=== PATIENT | male | born 1990 | race African-American/Black ===

== ENCOUNTER 2024-09-21 19:19 | Emergency (ER) | payer MEDICAID, OTHER ==
[~2024-09-21] VITALS: Ht 177.8 cm; Wt 91.6 kg
[2024-09-21 20:35] VITALS: BP 139/97; PULSE 104; RESP 16; TEMP 98.2; O2SAT 98
[2024-09-21] MEDS ORDERED: CLIN1CAP70 PO (20:48)
[2024-09-21] MEDS ORDERED: IBUP-1456 PO (20:48)
--- NOTE | 2024-09-21 20:49 | ED.PDOC ---
Musculoskeletal HPI Comments 34 year old male presents to ER for wound check. Patient states he sustained a non-healing wound to webspace of left 4th and 5th toes 2 weeks ago s/p hitting his left foot against a "piece of metal" and presents to ER today for wound check. He reports 10/10 pain localized to webspace of left 4th and 5th toes. Denies use of medications for current symptoms. Patient presents to ER ambulatory on arrival, with steady gait, in no distress. Denies fever, skin drainage, numbness/tingling or any further symptoms/complaints Chief Complaint: Lower Extremity Time Seen by MD: 19:40 Primary Care Provider: UNKNOWN Reviewed Notes: Nurses Notes, Medications, Allergies Allergies: Coded Allergies: NO KNOWN ALLERGIES (Unverified , 09/21/24) Home Meds Active Scripts Ibuprofen (Ibuprofen) 800 Mg Tab, 1 TAB PO TID PRN, #30 TAB 0 Refills Prov:BRITTANY SOMMER 09/21/24 Clindamycin Hcl (Clindamycin Hcl) 300 Mg Cap, 1 CAP PO TID for 7 Days, #21 CAP 0 Refills Prov:BRITTANY SOMMER 09/21/24 Information Source: Patient Mode of Arrival: Ambulatory Last Tetanus: Unknown Past Medical History PAST MEDICAL HISTORY: Denies Surgical History: Denies all surgeries Family History Family History: Unknown Social History Smoker: Non-Smoker Alcohol: Occasionally Drugs: Marijuana Lives In: Home Constitutional: denies: chills, diaphoresis, fatigue, fever, malaise, sweats, weakness, others EENTM: denies: blurred vision, double vision, ear bleeding, ear discharge, ear drainage, ear pain, ear ringing, eye pain, eye redness, hearing loss, mouth pain, mouth swelling, nasal discharge, nose bleeding, nose congestion, nose pain, photophobia, tearing, throat pain, throat swelling, voice changes, others Respiratory: denies: cough, hemoptysis, orthopnea, SOB at rest, shortness of breath, SOB with excertion, stridor, wheezing, others Cardiovascular: denies: chest pain, dizzy spells, diaphoresis, Dyspnea on exertion, edema, irregular heart beat, left arm pain, lightheadedness, palpitations, PND, syncope, others Gastrointestinal: denies: abdomen distended, abdominal pain, blood streaked bowels, constipated, diarrhea, dysphagia, difficulty swallowing, hematemesis, melena, nausea, poor appetite, poor fluid intake, rectal bleeding, rectal pain, vomiting, others Genitourinary: denies: burning, dysuria, flank pain, frequency, hematuria, incontinence, penile discharge, penile sore, pain, testicle pain, testicle swelling, urgency, others Neurological: denies: dizziness, fainting, headache, left sided numbness, left sided weakness, numbness, paresthesia, pre-existing deficit, right sided numbness, right sided weakness, seizure, speech problems, tingling, tremors, weakness, others Musculoskeletal: denies: back pain, gout, joint pain, joint swelling, muscle pain, muscle stiffness, neck pain, others Integumetry: reports: others (As stated in HPI) Allergic/Immunocompromised: denies: Difficulty Healing, Frequent Infections, Hives, Itching, others Hematologic/Lymphatic: denies: anemia, blood clots, easy bleeding, easy bruising, swollen glands, others Endocrine: denies: excessive hunger, excessive sweating, excessive thirst, excessive urination, flushing, intolerance to cold, intolerance to heat, unexplained weight gain, unexplained weight loss, others Psychiatric: denies: anxiety, bipolar disorder, depression, hopeless, panic disorder, schizophrenia, sleepless, suicidal, others Physical Exam General Appearance: No Apparent Distress HEENT: PERRL/EOMI Neck: Full Range of Motion, Non-Tender, Normal Respiratory: Chest Non-Tender, Lungs Clear, No Accessory Muscle Use, No Respiratory Distress, Normal Breath Sounds Cardiovascular: No Murmur, No Gallop, Regular Rate/Rhythm Breast Exam: Deferred Gastrointestinal: NOT DONE Genitalia: Deferred Pelvic: Deferred Rectal: Deferred Extremities: Normal capillary refill, Normal range of motion Neurologic: Alert, tile trimmer II-XII nml as Tested, No Motor Deficits, Normal Affect, Normal Mood, No Sensory Deficits Cerebellar Function: Normal Reflexes: Normal Skin: Dry, Warm, Other (Mild swelling/erythema/TTP noted to webspace of left 4th and 5th toes. No skin drainage noted. Patient able to move all toes of left foot. Pulses intact) Peripheral Pulses: 2+ dorsalis pedis (R), 2+ dorsalis pedis (L) Lymphatic: No Adenopathy Was a procedure done? Was a procedure done?: No Sedation Sedation?: No Differential Diagnosis EXT Differential Diagnosis: Fracture, Dislocation, Contusion, Neurovascular injury X-Ray, Labs, Meds, VS Vital Signs Date Time Temp Pulse Resp B/P (MAP) Pulse Ox O2 Delivery O2 Flow Rate FiO2 09/21/24 20:35 98 Room Air* 0 21 09/21/24 20:35 98.2 104 16 139/97 (111) 98 98.2 09/21/24 19:30 98.2 104 16 139/97 (111) 98 98.2 Current Medications Medications (Trade) Dose Ordered Sig/Gabriel Route Start Time Stop Time Status Last Admin Ceftriaxone Sodium (Rocephin) 1,000 mg ONCE ONCE IM 09/21/24 20:45 09/21/24 20:46 DC 09/21/24 21:01 PATIENT: QUE SOLOMON ACCT: [id number] UNIT: [id number] : 1990 LOC: ER ROOM / BED: / AGE / SEX: 34 / M ADM STATUS: REG ER SERVICE 36 ORDERING PHYSICIAN: BRITTANY SOMMER PROCEDURE(s): LFOOT - L FOOT 3 VIEW XRAY REASON: left 4th and 5th toe pain ORDER NUMBER(s): [id number], ACCESSION NUMBER(s): [id number] EXAMINATIONS: 3 views of the left foot CLINICAL HISTORY: left 4th and 5th toe pain COMPARISON: None Findings and impression: Soft tissue swelling of the lateral forefoot distally. No grossly displaced fractures or dislocations are evident on the provided views. If there is persistent clinical concern for occult fracture, CT may be obtained to further evaluate. ATED BY: CHAD HAZEL MD DICTATED DATE/TIME: 09/21/242134 SIGNED BY: CHAD HAZEL MD SIGNED DATE/TIME: 09/21/242134 CC: Left foot x-ray reviewed Patient neurovascularly intact Rocephin 1 g IM ordered Tdap 0.5 mL IM ordered Wound care/cleaning discussed and advised Advised to follow up with PCP in 1-2 days Patient verbalized understanding and agreeable with current plan of care Advised to return to ER immediately if symptoms worsen Images Reviewed?: Images reviewed and evaluated by me Time of 1ST Reevaluation: 20:40 Reevaluation 1ST: N/A Patient Education/Counseling: Diagnosis, Treatment, Prognosis, Need For Follow Up Family Education/Counseling: No Family Present Departure 1 Departure Time of Disposition: 21:42 Impression: Primary Impression: Cellulitis of left foot Disposition: 01 HOME / SELF CARE / HOMELESS Condition: Stable e-Prescriptions Ibuprofen (Ibuprofen) 800 Mg Tab 1 TAB PO TID PRN, #30 TAB 0 Refills Prov: BRITTANY SOMMER 09/21/24 Clindamycin Hcl (Clindamycin Hcl) 300 Mg Cap 1 CAP PO TID for 7 Days, #21 CAP 0 Refills Prov: BRITTANY SOMMER 09/21/24 Discharged With: Self Critical Care Note Critical Care Time?: No Stability Stability form required: No Heart Score Heart Score: Heart Score Response (Comments) Value History N/A 0 EKG N/A 0 Age N/A 0 Risk Factors N/A 0 Troponin N/A 0 Total 0 BRITTANY SOMMER September 21, 2024 20:49
[2024-09-21] MEDS: cefTRIAXone SOD 1,000 MG VL IM ONE (21:01)
[2024-09-21] MEDS: TETANUS-DIPTH-ACEL PERTUSSIS 0.5ML SYR Tdap IM ONE (21:01)
--- NOTE | 2024-09-21 21:38 | DVH ---
EXAMINATIONS: 3 views of the left foot CLINICAL HISTORY: left 4th and 5th toe pain COMPARISON: None Findings and impression: Soft tissue swelling of the lateral forefoot distally. No grossly displaced fractures or dislocations are evident on the provided views. If there is persistent clinical concern for occult fracture, CT may be obtained to further evaluate.
== END 2024-09-21 21:51 | disposition home or self-care (01) ==
LOC: ER 19:19
DX: L03.116 Cellulitis of left lower limb (principal); F12.90 Cannabis use, unspecified, uncomplicated; Z79.899 Other long term (current) drug therapy
CPT/HCPCS: 73630; 82947; 96372; 99283; J0696; 90715